=== PATIENT | male | born 1950 | race Caucasian/White ===

== ENCOUNTER 2021-11-17 16:17 | Emergency (ER) | payer MEDICARE ==
--- NOTE | 2021-11-17 17:13 | ED Physician Documentation ---
History of Present Illness - Stated complaint Stated Complaint: RT PINKY LAC - Chief complaint Chief Complaint: Laceration - Additonal information Additional information: 71-year-old male presents emergency department for evaluation of right small finger laceration sustained when trying to turn off his drone. Last tetanus 2018. He is right-hand dominant. Review of Systems Constitutional: denies: Fever, Chills Skin: reports: Laceration (s) Musculoskeletal: reports: Reviewed and negative PD PAST MEDICAL HISTORY - Allergies Allergies/Adverse Reactions: Allergies Allergy/AdvReac Type Severity Reaction Status Date / Time isoniazid Allergy Unknown Verified 11/17/21 16:25 lisinopril Allergy Respiratory Verified 11/17/21 16:25 lovastatin Allergy Unknown Verified 11/17/21 16:25 PD ED PE EXPANDED - Extremities Extremities: Right finger(s) (Three 0.5 cm lacerations on the right small finger index tip. ) Results - Vitals Vitals: Vital Signs - 24 hr 11/17/21 16:22 Temperature 36.4 C L Heart Rate 60 Respiratory 16 Rate Blood Pressure 163/80 H O2 Saturation 96 Oxygen O2 Source Room air Procedures - Laceration (location) Right small finger Length in cm: 0.5 (X3) Wound type: Curved, Superficial Neurovascular status: Sensory intact, Motor intact Tendon involvement: Tendon intact Wound preparation: Irrigated copiously NS Skin layer closure: Dermabond Other: Patient tolerated well, Tetanus UTD PD MEDICAL DECISION MAKING - ED course Complexity details: considered differential, d/w patient ED course: 71-year-old male presents emergency department for evaluation of 3 superficial laceration sustained to the tip of his index finger when trying to shut off his drone. His tetanus is up-to-date. I did offer to suture these wounds however the patient prefers glue as he does not want to have to have sutures removed. Wounds were closed With Dermabond. Otherwise emergent return precautions discussed. Departure - Departure Disposition: 01 Home, Self Care Clinical Impression: Laceration of finger Qualifiers: Encounter type: initial encounter Finger: little finger Damage to nail status: without damage Foreign body presence: without foreign body Laterality: right Qualified Code(s): S61.216A - Laceration without foreign body of right little finger without damage to nail, initial encounter Instructions: ED Laceration Ext Skin Glue Comments: Elmer you prefer to have your lacerations closed with glue today. This can sometimes cause a messy appearance to the wound however I suspect that these will heal well over the next week with no further intervention. In 24 hours you can remove your bandage. You can gently wash with warm soap and water and then simply reapply the bandage. Return to the ER if you have any concerns of infection. Your tetanus is up-to-date as of 2018
[2021-11-17 17:19] VITALS: BP 145/75
== END 2021-11-17 17:19 | disposition home or self-care (01) ==
LOC: ED 16:17
DX: S61.216A Laceration without foreign body of right little finger without damage to nail, initial encounter (principal); W26.8XXA Contact with other sharp object(s), not elsewhere classified, initial encounter
CPT/HCPCS: 12001; 99281